=== PATIENT | female | born 1995 | race Caucasian/White ===

== ENCOUNTER 2017-01-20 17:39 | Emergency (ER) | payer OTHER ==
[2017-01-20 17:52] VITALS: BP 115/95; PULSE 80; RESP 18; TEMP 98.6; O2SAT 97
--- NOTE | 2017-01-20 17:52 | EDPHY ---
H & P Smoking Status: Never smoked Time Seen by Provider: 01/20/17 17:47 HPI/ROS: CHIEF COMPLAINT: Left knee and left ankle pain HISTORY OF PRESENT ILLNESS: 21-year-old female arrives by ambulance, not a trauma activation, after she was hiking, slipped and rolled her left ankle and subluxed her left patella. 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 The patella was reduced on scene by off duty paramedics. She was splinted with a same splint. She is unable to bear weight secondary to knee and ankle pain. She sustained other abrasions but denies other pain. Denies: Head injury, chest pain or injury, back pain injury, dyspnea, peripheral paresthesia, weakness, numbness.. PRIMARY CARE PROVIDER:[facility] REVIEW OF SYSTEMS: A ten point review of systems was performed and is negative with the exception of the items mentioned in the HPI PAST MEDICAL/SURGICAL HISTORY: Prior bilateral patellar subluxation times 12 . Tetanus is up-to-date SOCIAL HISTORY: denies alcohol use at time of incident PHYSICAL EXAM 1) GENERAL: Well-developed, well-nourished, alert and oriented. Appears to be in no acute distress. Smiling, Answering questions appropriately. 2) HEAD: Normocephalic, atraumatic 3) HEENT: Pupils equal, round, reactive to light bilaterally. 4) NECK: Posterior cervical spine is nontender, no stepoff, no effusion. Full range of motion which does not elicit any midline cervical spine pain, no posterior midline tenderness, no step-off. 5) LUNGS: Clear to auscultation bilaterally, no wheezes 6) HEART: Regular rate and rhythm, 7) ABDOMEN: No guarding, no rebound, no focal tenderness 8) MUSCULOSKELETAL: Left lower extremity: Prepatellar soft tissue swelling is noted, tender to palpation over the patella which is midline no clinical evidence of patella osmin or baja. She is keeping the knee fully extended and refuses to flex secondary to pain. Distal DP PT pulses are present and brisk. Brisk capillary refill. Normal color normal temperature. Soft tissue swelling to the left lateral malleolus with intact skin no tenting. Abrasion to left forearm and left palmar hand with no underlying osseous pain. Otherwise, moving all extremities no focal areas of pain 9) BACK: no visual or palpable abnormality. 10) SKIN: No laceration. DIFFERENTIAL DIAGNOSIS: in no particular order including but not limited to fracture, sprain, dislocation (Bonilla Oliver) Constitutional: Initial Vital Signs Temperature (C) 37 C 01/20/17 17:51 Heart Rate 80 01/20/17 17:51 Respiratory Rate 18 01/20/17 17:51 Blood Pressure 115/95 H 01/20/17 17:51 O2 Sat (%) 97 01/20/17 17:51 O2 Delivery Mode Room Air Allergies/Adverse Reactions: No Known Allergies Allergy (Verified 01/20/17 17:53) Home Medications: Medication Instructions Recorded Bcp 10/31/14 Hydrocodone/APAP 5/325 [[place] 1 tab PO Q6 PRN #15 tab 01/20/17 5/325 (RX)] Ibuprofen [Motrin (*)] 800 mg PO Q6 #15 tab 01/20/17 MDM/Departure - MDM Imaging Results: Imaging Impressions Ankle X-Ray 01/20/17 17:47 Impression: Minimally displaced fracture of the lateral malleolus. Knee X-Ray 01/20/17 17:47 Impression: 1. Minimally displaced medial patellar fracture 2. Large joint effusion. Images reviewed by myself (Bonilla Oliver) Procedures: Procedure: Crutches indications for crutch use discussed with patient. Patient fitted for crutches by ER staff. Observed ambulating with crutches. I think the patient has the capacity to safely use crutches. Usual and customary crutch walking precautions provided Procedure: Splint A knee immobilizer splint and left Zachary boot was applied by ER automatic equipment technician. After application of the splint I returned and re-examined the patient. The splint was adequately immobilizing the joint and distal to the splint the patient's circulation and sensation were intact. Patient shows no signs of compartment syndrome. Was given orthopedic precautions. (Bonilla Oliver) ED Course/Re-evaluation: This patient was re-evaluated with serial examinations. Remains neurovascularly intact with soft compartments. No evidence of compartment syndrome at this time. We had a lengthy discussion , provided her my usual and customary orthopedic precautions including compartment syndrome. We discussed splinting of the lower extremity including a single Ortho Glass long leg splint verses knee immobilizer plus Zachary boot and she prefers a knee immobilizer plus Zachary boot which still provides sufficient immobilization. Stressed the importance of orthopedic follow-up and given these resources. Discharged with analgesia prescription and orthopedic follow-up information.Care and management in consultation with secondary supervising physician Dr Mercer . (Bonilla Oliver) The patient was evaluated and managed by the physician administrative assistant front desk. I have reviewed this chart and I agree with the findings and plan of care as documented , as indicated by my signature. I am the secondary supervising physician. ( Елена Thomason) - Depart Disposition: Home, Routine, Self-Care Clinical Impression: Hiking on level or elevated terrain Subluxation of left patella Qualifiers: Encounter type: initial encounter Qualified Code(s): S83.002A - Unspecified subluxation of left patella, initial encounter Left patella fracture Qualifiers: Encounter type: initial encounter Fracture type: closed Fracture morphology: longitudinal Fracture alignment: displaced Qualified Code(s): S82.022A - Displaced longitudinal fracture of left patella, initial encounter for closed fracture Fracture of left ankle, lateral malleolus Qualifiers: Encounter type: initial encounter Fracture type: closed Fracture alignment: displaced Qualified Code(s): S82.62XA - Displaced fracture of lateral malleolus of left fibula, initial encounter for closed fracture Condition: Good Instructions: Ankle Fracture (ED), Patellar Fracture (ED), Patellar Dislocation (ED) Additional Instructions: Return to the ER immediately if you experience discoloration, have worsening pain, numbness, tingling, or any other symptoms that concern you. If you received x-rays in the emergency department today, be advised, that ligamentous , tendon, muscular, and other non-bony injury cannot be fully ruled out. Try to keep your affected extremity elevated above the level of your chest, and keep cold packs on the affected area, for the next 48 hours. Prescriptions: Hydrocodone/APAP 5/325 [[place] 5/325 (RX)] 1 tab PO Q6 PRN #15 tab PRN Reason: Pain, Severe Ibuprofen [Motrin (*)] 800 mg PO Q6 #15 tab Referrals: Dinesh So MD [Medical Doctor] - 2-3 days, call for appt. (Dr. Dinesh So is orthopedic surgeon)
== END 2017-01-20 19:20 | disposition home or self-care (01) ==
LOC: EDUNIT#
DX: S82.022A Displaced longitudinal fracture of left patella, initial encounter for closed fracture (principal); S82.62XA Displaced fracture of lateral malleolus of left fibula, initial encounter for closed fracture; S83.002A Unspecified subluxation of left patella, initial encounter; W18.40XA Slipping, tripping and stumbling without falling, unspecified, initial encounter; Y99.8 Other external cause status; Y93.01 Activity, walking, marching and hiking
CPT/HCPCS: L1830; L4386